=== PATIENT | male | born 1995 | race Caucasian/White ===

== ENCOUNTER 2022-06-19 14:16 | Emergency (ER) | payer BC, OTHER ==
[2022-06-19 14:22] VITALS: TEMP 98
--- NOTE | 2022-06-19 15:30 | ED ---
General Adult HPI - General Chief complaint: Neuro Symptoms/Deficit Stated complaint: facial weakness Time Seen by Provider: 06/19/22 14:30 Source: patient Mode of arrival: ambulatory Limitations: no limitations - History of Present Illness Initial comments: 27-year-old male presents to the emergency department with reported right-sided facial droop. States it's been going on for the past 2 days. He has complete paralysis of the right upper and lower face. He has been drooling when he eats. States that he has blurred vision as he cannot close his eye. Reports his symptoms all started after he began having some right-sided sinus pressure and right ear pain. He performed a peroxide wash of the right ear and was using Q- tips without any improvement. Subsequently the patient then noted that he had the facial droop. The weakness does not involve his right upper and lower extremity. There is been no confusion from the patient. No slurred speech. No headaches. No head trauma. No history of strokes. Patient previously healthy. No other alleviating, precipitating or modifying factors - Related Data Previous Rx's Medication Instructions Recorded Cephalexin [Keflex] 500 mg PO Q12HR 7 Days cap 11/25/15 Acyclovir [Zovirax] 400 mg PO 5XD #35 tablet 06/19/22 Artificial Tears Ointment 1 gm OPHTHALMIC HS #20 gm 06/19/22 [Lubrifresh Pm Ointment] Carboxymethylcellulose Sodium 2 drop RIGHT EYE Q1HR #15 ml 06/19/22 [Refresh Tears] predniSONE [Deltasone] 60 mg PO DAILY 7 Days #21 tab 06/19/22 Allergies Allergy/AdvReac Type Severity Reaction Status Date / Time No Known Allergies Allergy Verified 11/25/15 11:16 Review of Systems ROS Statement: Those systems with pertinent positive or pertinent negative responses have been documented in the HPI. ROS Other: All systems not noted in ROS Statement are negative. Past Medical History Past Medical History: No Reported History History of Any Multi-Drug Resistant Organisms: None Reported Past Surgical History: No Surgical Hx Reported Past Psychological History: Anxiety, Depression Smoking Status: Never smoker Past Alcohol Use History: Occasional Past Drug Use History: Marijuana General Exam Limitations: no limitations General appearance: alert, in no apparent distress Head exam: Present: atraumatic, other (droop to right face - upper and lower. Eye difficult to close. lip droop) ENT exam: Present: mucous membranes moist Neck exam: Present: normal inspection. Absent: tenderness, meningismus, lymphadenopathy Respiratory exam: Present: normal lung sounds bilaterally. Absent: respiratory distress, wheezes, rales, rhonchi, stridor Cardiovascular Exam: Present: regular rate, normal rhythm, normal heart sounds. Absent: systolic murmur, diastolic murmur, rubs, gallop, clicks GI/Abdominal exam: Present: soft, normal bowel sounds. Absent: distended, tenderness, guarding, rebound, rigid Extremities exam: Present: normal inspection, full ROM, normal capillary refill, other (5/5 strength all extremities). Absent: tenderness, pedal edema, joint swelling, calf tenderness Course Vital Signs 06/19/22 06/19/22 14:18 15:43 Temperature 98 F Pulse Rate 100 65 Respiratory 20 18 Rate Blood Pressure 141/75 120/75 O2 Sat by Pulse 98 97 Oximetry Medical Decision Making - Medical Decision Making Arrival patient was placed into room 25. A thorough history and physical exam was performed. 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 Patient will be placed on acyclovir and prednisone. He will use lubricating Lolly eyedrops every hour. He is to use lubricating eye cream at night and tape his eye shut. He needs to follow up with his primary care doctor. 4 days or return for any new or worsening symptoms. Strict return parameters were discussed. Patient discharged home in stable condition Disposition Clinical Impression: Facial droop, Cochran palsy Disposition: HOME SELF-CARE Condition: Stable Instructions (If sedation given, give patient instructions): Cochran Palsy (ED) Additional Instructions: Take the prednisone and acyclovir as directed. Use the eyedrops every hour while awake. Use the lubricating cream at night and tape your eye closed. Follow up with your doctor in 2-4 days and return for any new or worsening symptoms Prescriptions: predniSONE [Deltasone] 60 mg PO DAILY 7 Days #21 tab Artificial Tears Ointment [Lubrifresh Pm Ointment] 1 gm OPHTHALMIC HS #20 gm Carboxymethylcellulose Sodium [Refresh Tears] 2 drop RIGHT EYE Q1HR #15 ml Acyclovir [Zovirax] 400 mg PO 5XD #35 tablet Is patient prescribed a controlled substance at d/c from ED?: No Referrals: None,Stated [Primary Care Provider] - 1-2 days Time of Disposition: 15:30
[2022-06-19 15:45] VITALS: BP 120/75; PULSE 65; RESP 18
== END 2022-06-19 15:44 | disposition home or self-care (01) ==
LOC: EC 14:16
DX: R29.810 Facial weakness (principal); F41.9 Anxiety disorder, unspecified; F32.A Depression, unspecified; F12.90 Cannabis use, unspecified, uncomplicated
CPT/HCPCS: 99284